=== PATIENT | female | born 1995 | race Caucasian/White ===

== ENCOUNTER 2018-12-06 18:50 | Inpatient (IN) ==
[2018-12-06 19:50] LABS: Basophils # (auto) 0.05 K/uL (0-0.2); Basophils % (auto) 0.4 %; Eosinophils # (auto) 0.15 K/uL (0-0.5); Eosinophils % (auto) 1.1 %; Hemoglobin 14.3 g/dL (12.0-16.0); Immature Granulocytes # (auto) 0.06 K/uL (0.00-0.02); Immature Granulocytes % (auto) 0.4 %; Lymphocytes # (auto) 3.01 K/uL (1.2-3.4); Lymphocytes % (auto) 21.7 %; Mean Corpuscular Hgb Conc 34.9 g/dL (32-36); Mean Corpuscular Volume 89.9 fL (80-100); Mean Platelet Volume 9.4 fL (7.4-10.4); Monocytes # (auto) 1.07 K/uL (0.11-0.59); Monocytes % (auto) 7.7 %; Neutrophils # (auto) 9.52 K/uL (1.4-6.5); Neutrophils % (auto) 68.7 %; Platelet Count 349 K/uL (130-400); RDW Coefficient of Variation 12.8 % (11.5-14.5); RDW Standard Deviation 41.6 fL (36.4-46.3); Red Blood Count 4.56 M/uL (4.2-5.4); White Blood Count 13.86 K/uL (4.8-10.8)
[2018-12-06 20:03] LABS: Appearance Urine Clear (Clear); Bacteria Urine Automated 1+ (Negative); Bilirubin Urine Negative (Negative); Blood Urine Negative (Negative); Color Urine Dark Yellow; Epithelial Cell Urine Auto >30 /lpf (0-5); Glucose Urine UA Negative (Negative); Ketones Urine Trace (Negative); Leukocyte Esterase Urine Negative (Negative); Nitrite Urine Negative (Negative); Protein Urine Trace (Negative); RBC Urine Automated 0-4 /hpf (0-4); Specific Gravity Urine 1.021 (1.000-1.030); Urobilinogen Urine Negative (Negative); pH Urine 6.5 (4.5-7.5)
[2018-12-06 20:05] LABS: Albumin Level 3.5 gm/dl (3.4-5.0); BUN Creatinine Ratio 7.4 (10-20); Calcium 9.3 mg/dl (8.5-10.1); Creatinine Clr Calc Pharmacy 99.8 ml/min; Est GFR (African American) 127.9; Est GFR (Non-African American) 110.4; Potassium 3.3 mmol/L (3.5-5.1)
[2018-12-06 20:09] LABS: Albumin Globulin Ratio 0.7 (0.9-2); Bilirubin,Total 0.5 mg/dl (0.2-1); Globulin 5.3 gm/dl (2.5-4.0); Total Protein 8.8 gm/dl (6.4-8.2)
[2018-12-06 20:52] LABS: Renal Epithelial Cells Urine 0-5 /lpf (0-5)
--- NOTE | 2018-12-06 21:37 | Ultrasound Report ---
US extremity non-vascular ltd HISTORY: 23 years-old Female R proximal thigh edema, localized acute pain and swelling of the right proximal thigh COMPARISON: None available TECHNIQUE: Multiple real-time sonographic images of the right thigh were obtained assessing grayscale appearance and color flow FINDINGS: Moderate subcutaneous edema is noted about the proximal right thigh. In the area of clinical concern there is a mildly enlarged lymph node measuring 2.3 x 1.1 x 1.7 cm which morphologically appears unre markable. Adjacent smaller lymph nodes are also present. No drainable fluid collection or other focal abnormality identified. IMPRESSION: 1. Subcutaneous edema about the proximal thigh with a single mildly enlarged lymph node, possibly cathleen ctive. 2. No drainable fluid collection. The above report was generated using voice recognition software. It may contain grammatical, syntax o r spelling errors. Electronically signed by: Rick Pepe M.D. 12/06/2018 9:35 PM
--- NOTE | 2018-12-06 22:49 | History & Physical Report ---
Date of Service December 06, 2018 Assessment & Plan (1) Cellulitis of thigh: 23 y/o F Hx psoriasis who takes Cosentyx. She developed an area of inflammation on her R thigh jackie the past 1-2 days which has become firm and painful. She denies fevers or rigors and did not suffer trauma to the area. Initial labs are notable for leukocytosis and mild hypokalemia. 1) Cellulitis - no abscess on imaging but there is subcutaneous fluid and risk of abscess development. She will be retained in the hospital overnight as she is technically immunocompromised due to Cosentyx and the affected area is approaching the groin fold. She is placed on Clinda and Vanc. The affected area has been delineated. Surgery has been consulted. 2) Hypokalemia - mild - received 20meq Klorcon, 20KLC in IVF, 1g Mag 3) Psoriasis - can hold Cosentyx until infection resolves. Full code - Ambulatory - start Heparin if exceeds a day in hospital and no debridement needed AM Total time for this admit including review of labs, meds, imaging - discussion with pt and ER attending - 35 min Present on Admission?: Yes History of Present Illness Chief Complaint: Cellulitis thigh Primary Care Provider: NO PCP 23 y/o F Hx psoriasis who takes Cosentyx. She developed an area of inflammation on her R thigh jackie the past 1-2 days which has become firm and painful. She denies fevers or rigors and did not suffer trauma to the area. Initial labs are notable for leukocytosis and mild hypokalemia. PMH: Limited to psoriasis. She was on Humira for one year and switched to Cosentyx as the Humira injection was painful. Surgical: Tonsillectomy age 17 Social: [employer] student. Denies smoking. Drink a little. Family: Parents alive and well. Past Med/Surg History Social History Preferred Language: Barbadian Feels Safe at Home: Yes Smoking Status: Never smoker Review of Systems Review of Systems: Gen: Denies fevers, night sweats, rigors, fatigue, malaise, weight loss/gain ENT: Denies congestion, throat pain, hearing loss Eyes: Denies acute visual changes CV: Denies CP, palpitations Pulmonary: Denies SOB, cough, wheezing GI: Denies N/V, diarrhea, constipation Neuro: Denies acute or unilateral weakness, acute gait impairment, headache or acute visual changes Musculoskeletal: Denies joint pain, inflammation Endocrine: Denies polydipsia, polyuria Skin: Acute inflammation on R thigh Physical Exam Physical Exam: General: AAO x 3, no distress ENT: No erythema or exudates, no thrush Eyes: TITO, EOMI Head and neck: Normocephalic, atraumatic, No JVD, neck is supple. Chest/heart: Nontender, S1,2, RRR, no murmurs, no gallops Lungs: CTAB, no wheezing or crackles Abdomen: Nontender, nondistended, BS+ Neuro: AAO x 3, speech is clear, no unilateral weakness or loss of sensation, coordination intact Musculoskeletal: No joint inflammation, muscle tenderness, FROM Skin: There is a large frim/erythematous area on the pt's R thigh which examines as an abscess. Extremities: No clubbing, cyanosis, edema Results & Data Vital Signs (Past 12 Hours) Vital Signs Temp Pulse Pulse Resp BP BP Pulse Ox 12/06/18 20:46 108 H 18 136/89 93 12/06/18 18:54 97.9 F 125 H 16 133/94 100
[2018-12-06] MEDS ORDERED: TRAMADOL HCL 50 MG TABLET PO PRN (23:38)
[2018-12-06] MEDS ORDERED: ALUMINUM/MAGNESIUM SUSP 30 ML UDC PO PRN (23:38)
[2018-12-06] MEDS ORDERED: ACETAMINOPHEN 325 MG TAB PO PRN (23:38)
[2018-12-06] MEDS ORDERED: POLYETHYLENE (MIRALAX) 17 GM PACK PO PRN (23:38)
[2018-12-06] MEDS ORDERED: VANCOMYCIN CONSULT ACTIVE PRN (23:38)
[2018-12-06] MEDS ORDERED: IBUPROFEN 200 MG TAB PO PRN (23:38)
[2018-12-06] MEDS ORDERED: ZOLPIDEM TARTRATE 5 MG TAB PO PRN (23:38)
[2018-12-06] MEDS ORDERED: ONDANSETRON INJ 2 MG/ML 2 ML VIAL IV PRN (23:38)
[2018-12-06] MEDS ORDERED: MAGNESIUM HYDROXIDE SUSP 30 ML UDC PO PRN (23:38)
[2018-12-06] MEDS ORDERED: PATIENT'S ALLERGY INFO NEEDS ENTERED SCH (23:45)
[2018-12-07] MEDS ORDERED: MAGNESIUM SULFATE / D5W 1 GM/100 ML BAG IV ONE (01:00)
[2018-12-07] MEDS ORDERED: D5NSS + 20MEQ KCL 20 MEQ/1,000 ML BAG IV SCH (01:00)
[2018-12-07] MEDS ORDERED: POTASSIUM CHLORIDE 20 MEQ TABCR PO STA (01:09)
--- NOTE | 2018-12-07 01:19 | Emergency Department Note ---
History of Present Illness General Chief complaint: Skin Problem Stated complaint: LUMP ON GROIN/RIGHT THIGH Time Seen by Provider: 12/06/18 18:58 History of Present Illness Maximum Pain Intensity: 8 This is a 23-year-old female that presents to the emergency department via private vehicle with complaints of "lump on groin/right thigh". The patient notes that beginning November 25 she felt a bump in the right proximal medial thigh. It progressively has worsened and become larger and now painful. She notes that she could barely walk because of the pain in this region. She notes that [facility] to coming here and was prescribed doxycycline. She notes that there is pain in the region of which she currently rates as an 8/10. She notes no trauma or injury. She states that on November 14 though however she did administer her scheduled psoriasis medication. She notes that this injection was administered inferior to the region that is now of concern. 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 Beliefs That Will Affect Care: None Current Living Situation: Other Current Living Situation Comment: roommates Feels Safe at Home: Yes Safety Concerns: Feels Safe At This Time Smoking Status: Never smoker Hx Alcohol Use: Yes Alcohol type: beer, wine and hard liquor Hx Substance Use: No Review of Systems A total of 10 systems reviewed and were otherwise negative Physical Exam Vital Signs Vital Signs - 24 hr 12/06/18 18:54 12/06/18 20:46 12/06/18 22:41 Temperature 36.6 C Temperature Source Oral Sepsis Recent Fever Within 48 Hours No Sepsis New/Unexplained Change in Mental Status No Sepsis Action Taken by Nursing No Action Required Pulse Rate 125 H Pulse Rate [Finger] 108 H 83 Pulse Rhythm [Finger] Pulse Strength [Finger] Respiratory Rate 16 18 18 Respiratory Effort / Characteristics Respiratory Depth Respiratory Pattern Blood Pressure 133/94 Blood Pressure [Right Arm] 136/89 124/77 Blood Pressure Mean 107 Blood Pressure Mean [Right Arm] 104 92 Blood Pressure Position [Right Arm] Pulse Oximetry 100 93 97 Oxygen Delivery Method Room Air Room Air Room Air 12/06/18 23:48 Temperature 37.1 C Temperature Source Oral Sepsis Recent Fever Within 48 Hours Sepsis New/Unexplained Change in Mental Status Sepsis Action Taken by Nursing Pulse Rate Pulse Rate [Finger] 103 H Pulse Rhythm [Finger] Regular Pulse Strength [Finger] Normal Respiratory Rate 16 Respiratory Effort / Characteristics Non-Labored Spontaneous Respiratory Depth Normal Respiratory Pattern Regular Blood Pressure Blood Pressure [Right Arm] 122/82 Blood Pressure Mean Blood Pressure Mean [Right Arm] 95 Blood Pressure Position [Right Arm] Lying Pulse Oximetry 99 Oxygen Delivery Method Room Air VITAL SIGNS - Vital signs and nursing notes were reviewed. Stable and afebrile. GENERAL -23-year-old female appearing her stated age who is in no acute dist ress. Communicates well with provider and answers questions appropriately. SKIN -on the patient's right proximal medial thigh there is a large edematous region that protrudes from the normal contour of the skin that is about 10 cm in width and about 5 cm in height. This raises off the skin about 3 cm. This is not fluctuant. This is tender and firm to the touch. HEAD - NC/AT. EYES - PERRL with EOMI bilaterally. Sclera anicteric. Palpebral conjunctiva pink and moist with no injection noted. EARS - No deformities of external structures noted on gross examination bilaterally. NOSE - Midline and without cyanosis. No epistaxis or purulent drainage noted. MOUTH/OROPHARYNX - Without perioral cyanosis. Buccal mucosa pink and moist and without leukoplakia. Tongue midline with equal elevation of palate bilaterally. NECK - Neck with FROM. Supple to palpation. No lymphadenopathy noted. No nuchal rigidity. LUNGS - Chest wall symmetric without accessory muscle use, intercostals retractions, or central cyanosis. Normal vesicular breath sounds CTA B/L. No wheezes, rales, or rhonchi appreciated. CARDIAC - RRR with S1/S2. No murmur, rubs, or gallops appreciated. EXTREMITIES - No clubbing or peripheral cyanosis. No pretibial edema present. +5/5 strength noted in UE/LE bilaterally. Skin changes as above. No bony tenderness. No lymphogenic streaking. No fluctuance. NEUROLOGIC - Cranial nerves II through XII grossly intact. Sensory intact to light touch throughout. PSYCH - A&Ox3 and cooperates fully with examiner. Pt is very pleasant and interacts well with examiner. Course Administered Medications Clindamycin Phosphate 600 mg/ (Dextrose) 54 mls @ 100 mls/hr IV Q8H JACKI Stop: 12/17/18 00:59 Last Admin: 12/07/18 01:23 Dose: 100 mls/hr Documented by: [id number] Potassium Chloride/Dextrose/Sod Cl (D5nss + 20meq Kcl) 20 meq in 1,000 mls @ 100 mls/hr IV .Q10H JACKI Stop: 12/07/18 10:59 Last Admin: 12/07/18 01:22 Dose: 100 mls/hr Documented by: [id number] Medical Decision Making Laboratory Data Result diagrams: 12/06/18 19:29 12/06/18 19:29 Lab Results 12/06/18 12/06/18 12/06/18 Range/Units 19:29 19:29 19:29 WBC 13.86 H (4.8-10.8) K/uL RBC 4.56 (4.2-5.4) M/uL Hgb 14.3 (12.0-16.0) g/dL Hct 41.0 (37-47) % MCV 89.9 (80-100) fL MCH 31.4 (25-34) pg MCHC 34.9 (32-36) g/dL RDW Std Deviation 41.6 (36.4-46.3) fL RDW Coeff of Denny 12.8 (11.5-14.5) % Plt Count 349 (130-400) K/uL MPV 9.4 (7.4-10.4) fL Immature Gran % (Auto) 0.4 % Neut % (Auto) 68.7 % Lymph % (Auto) 21.7 % Douglas % (Auto) 7.7 % Eos % (Auto) 1.1 % Baso % (Auto) 0.4 % Immature Gran # (Auto) 0.06 H (0.00-0.02) K/uL Neut # (Auto) 9.52 H (1.4-6.5) K/uL Lymph # (Auto) 3.01 (1.2-3.4) K/uL Douglas # (Auto) 1.07 H (0.11-0.59) K/uL Eos # (Auto) 0.15 (0-0.5) K/uL Baso # (Auto) 0.05 (0-0.2) K/uL Sodium 142 (136-145) mmol/L Potassium 3.3 L (3.5-5.1) mmol/L Chloride 104 (98-107) mmol/L Carbon Dioxide 29 (21-32) mmol/L Anion Gap 9.0 (3-11) BUN 6 L (7-18) mg/dl Creatinine 0.77 (0.6-1.2) mg/dl Est Cr Clr Drug Dosing 99.8 ml/min Est GFR ( Amer) 127.9 Est GFR (Non-Af Amer) 110.4 BUN/Creatinine Ratio 7.4 L (10-20) Glucose 102 H (70-99) mg/dl Calcium 9.3 (8.5-10.1) mg/dl Total Bilirubin 0.5 (0.2-1) mg/dl AST 16 (15-37) U/L ALT 20 (12-78) U/L Alkaline Phosphatase 179 H (45-117) U/L Total Protein 8.8 H (6.4-8.2) gm/dl Albumin 3.5 (3.4-5.0) gm/dl Globulin 5.3 H (2.5-4.0) gm/dl Albumin/Globulin Ratio 0.7 L (0.9-2) Urine Color Dark Yellow Urine Appearance Clear (Clear) Urine pH 6.5 (4.5-7.5) Ur Specific [place] 1.021 (1.000-1.030) Urine Protein Trace H (Negative) Urine Glucose (UA) Negative (Negative) Urine Ketones Trace H (Negative) Urine Blood Negative (Negative) Urine Nitrite Negative (Negative) Urine Bilirubin Negative (Negative) Urine Urobilinogen Negative (Negative) Ur Leukocyte Esterase Negative (Negative) Urine WBC (Auto) 5-10 H (0-5) /hpf Urine RBC (Auto) 0-4 (0-4) /hpf U Hyaline Cast (Auto) 10-30 H (0-5) /lpf U Epithel Cells (Auto) >30 H (0-5) /lpf Urine Bacteria (Auto) 1+ H (Negative) Ur Renal Epithelial Cell 0-5 (0-5) /lpf POC Ur Test (NEG) 12/06/18 Range/Units 19:29 WBC (4.8-10.8) K/uL RBC (4.2-5.4) M/uL Hgb (12.0-16.0) g/dL Hct (37-47) % MCV (80-100) fL MCH (25-34) pg MCHC (32-36) g/dL RDW Std Deviation (36.4-46.3) fL RDW Coeff of Denny (11.5-14.5) % Plt Count (130-400) K/uL MPV (7.4-10.4) fL Immature Gran % (Auto) % Neut % (Auto) % Lymph % (Auto) % Douglas % (Auto) % Eos % (Auto) % Baso % (Auto) % Immature Gran # (Auto) (0.00-0.02) K/uL Neut # (Auto) (1.4-6.5) K/uL Lymph # (Auto) (1.2-3.4) K/uL Douglas # (Auto) (0.11-0.59) K/uL Eos # (Auto) (0-0.5) K/uL Baso # (Auto) (0-0.2) K/uL Sodium (136-145) mmol/L Potassium (3.5-5.1) mmol/L Chloride (98-107) mmol/L Carbon Dioxide (21-32) mmol/L Anion Gap (3-11) BUN (7-18) mg/dl Creatinine (0.6-1.2) mg/dl Est Cr Clr Drug Dosing ml/min Est GFR ( Amer) Est GFR (Non-Af Amer) BUN/Creatinine Ratio (10-20) Glucose (70-99) mg/dl Calcium (8.5-10.1) mg/dl Total Bilirubin (0.2-1) mg/dl AST (15-37) U/L ALT (12-78) U/L Alkaline Phosphatase (45-117) U/L Total Protein (6.4-8.2) gm/dl Albumin (3.4-5.0) gm/dl Globulin (2.5-4.0) gm/dl Albumin/Globulin Ratio (0.9-2) Urine Color Urine Appearance (Clear) Urine pH (4.5-7.5) Ur Specific [place] (1.000-1.030) Urine Protein (Negative) Urine Glucose (UA) (Negative) Urine Ketones (Negative) Urine Blood (Negative) Urine Nitrite (Negative) Urine Bilirubin (Negative) Urine Urobilinogen (Negative) Ur Leukocyte Esterase (Negative) Urine WBC (Auto) (0-5) /hpf Urine RBC (Auto) (0-4) /hpf U Hyaline Cast (Auto) (0-5) /lpf U Epithel Cells (Auto) (0-5) /lpf Urine Bacteria (Auto) (Negative) Ur Renal Epithelial Cell (0-5) /lpf POC Ur Test NEG (NEG) Imaging Data Radiologist's Impression: US extremity non-vascular ltd HISTORY: 23 years-old Female R proximal thigh edema, localized acute pain and swelling of the right proximal thigh COMPARISON: None available TECHNIQUE: Multiple real-time sonographic images of the right thigh were obtained assessing grayscale appearance and color flow FINDINGS: Moderate subcutaneous edema is noted about the proximal right thigh. In the area of clinical concern there is a mildly enlarged lymph node measuring 2.3 x 1.1 x 1.7 cm which morphologically appears unremarkable. Adjacent smaller lymph nodes are also present. No drainable fluid collection or other focal abnormality identified. IMPRESSION: 1. Subcutaneous edema about the proximal thigh with a single mildly enlarged lymph node, possibly reactive. 2. No drainable fluid collection. The above report was generated using voice recognition software. It may contain grammatical, syntax or spelling errors. Electronically signed by: Rick Pepe M.D. 12/06/2018 9:35 PM [facility] Narrative Patient was seen and evaluated as above in room D3b. Review was performed of nursing notes and vital signs. After obtaining a thorough history and physical examination the above work up was performed. She presents to us today with what appears to be an infectious process in the right proximal thigh concerning for possible abscess versus induration. IV access was established. Labs were drawn. Ultrasound was obtained. Results as above. No drainable fluid collection. Subcutaneous edema noted. There is concern for cellulitis. I discussed these findings with the attending physician who also evaluated the area of concern and I also subsequently discussed this with the on-call general surgeon, Dr. Gann. We discussed different options of care. It was decided upon to have the patient admitted to the hospital under the medical service for IV antibiotics. A repeat ultrasound could then be performed if clinically necessary to evaluate for any developing abscess. There team could also be consulted. Patient was offered admission versus discharge and through shared decision-making elected to stay in the hospital. I believe this is reasonable given the amount of edema and infection. I am also concerned because I believe the patient is taking a medication for the psoriasis which is called Cosentyx and is immunosuppressant. The concern is that given her possible immunosuppres sed state that she may not do well in the outpatient setting initially as this is a pretty impressive infection. It is felt that it is in the best interest of the patient to be admitted for further evaluation and management. I also discussed these findings with her father per patient request. Everyone was happy with plan of care and in agreement. I discussed these findings with the hospitalist who came to evaluate the patient. Please refer to further documentation regarding her stay. They have ordered the antibiotics. In review of her labs: CBC reveals leukocytosis of 13.86 without anemia. Mild hypokalemia. Urinalysis does not reveal a UTI, rather believe there is a contaminated specimen. UPT negative. Case was discussed with the attending physician. In the evaluation and treatment of this patient the following differential diagnoses were entertained: Cellulitis, abscess, induration, lymph node enlargement, among others. Impression & Plan Cellulitis of thigh Discharge Plan Visit Data *Final* Discharge Date/Time: 12/06/18 23:11 Chief Complaint: Skin Problem Stated Complaint: LUMP ON GROIN/RIGHT THIGH ED Provider: Phi Adame ED Midlevel Provider: Nitin Bravo Discharge Problem: Cellulitis of thigh Patient Disposition: Admitted As Inpatient Condition: Good Discharge Instructions Interventions: ED Discharge Assessment Last Done: 12/06/18 23:11
[2018-12-07] MEDS: CLINDAMYCIN 600 MG in DEXTROSE 5% 50 ML IV SCH ×3 (01:23→16:53)
[2018-12-07] MEDS ORDERED: VANCOMYCIN HCL 1,500 MG in SODIUM CHLORIDE 0.9% 500 ML IV SCH (02:00)
[2018-12-07] MEDS ORDERED: POTASSIUM CHLORIDE 20 MEQ TABCR PO ONE (07:26)
--- NOTE | 2018-12-07 07:33 | Surgery Consultation ---
Date of Consultation December 07, 2018 Assessment & Plan (1) Cellulitis of thigh: Patient admitted with cellulitis of the right upper thigh. It appears the cellulitis has resolved well overnight but she continues to have some induration. I do not think we need to attempt drainage at this point continue IV antibiotics for now and then switch to p.o. antibiotic. We will ask infectious disease to see the patient for antibiotic choices. Depending on her Progress she may need incision and drainage under sedation. If she does well we may consider discharge in the next 1 to 2 days with outpatient follow-up. History of Present Illness Attending Physician: Donnie La MD History of Present Illness 23-year-old female admittedThrough the emergency room with complaint of right thigh tenderness this. She apparently has cellulitis in the area. She underwent ultrasound showing a lymph node approximately 2.5 cm with no specific fluid collection. She does have a history of psoriasis and uses Cosentyx which she apparently injects herself. This is not an injection site. 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 Beliefs That Will Affect Care: None Current Living Situation: Other Current Living Situation Comment: roommates Feels Safe at Home: Yes Safety Concerns: Feels Safe At This Time Smoking Status: Never smoker Hx Alcohol Use: Yes Alcohol type: beer, wine and hard liquor Hx Substance Use: No Review of Systems Review of Systems: All systems reviewed & are unremarkable except as noted in HPI & below Physical Exam Physical Exam: She is awake and alert she is in no distress her head is atraumatic sclera anicteric neck is supple showed no evidence of respiratory distress heart regular rate skin shows almost complete resolution of the celluli tis in the right upper thigh. She does have some induration mild tenderness. It does not appear to be fluctuant. Extremities are warm and dry. Results & Data Vital Signs (Past 12 Hours) Vital Signs Temp Pulse Resp BP Pulse Ox 12/06/18 23:48 37.1 C 103 H 16 122/82 99 12/06/18 22:41 83 18 124/77 97 12/06/18 20:46 108 H 18 136/89 93
--- NOTE | 2018-12-07 09:21 | Pharmacy Report ---
Pharmacy Abx Initial Consult - Date of Service December 07, 2018 - Pharmacy Dosing Scope Date of Consult: 12/07/18 Consultation requested by: Dr. La Pharmacy is consulted to initiate Vancomycin IV dosing therapy, order appropriate labs and adjust drug dose/frequency. - Objective Height: 5 ft 4 in Weight: 64.2 kg Vital Signs (Past 12hrs): Vital Signs Temp Pulse Resp BP Pulse Ox 12/07/18 07:54 36.6 C 71 16 114/77 98 12/06/18 23:48 37.1 C 103 H 16 122/82 99 12/06/18 22:41 83 18 124/77 97 Lab Results (24hrs): Laboratory Tests (24 Hours) 12/06/18 12/06/18 19:29 19:29 WBC 13.86 H Neut # (Auto) 9.52 H Creatinine 0.77 Est Cr Clr Drug Dosing 99.8 Micro Results: 12/06/18 19:29 Urine Culture - Pending Urine,Clean Catch - Risk Factors for Resistance * Immunocompromised; pt takes secukinumab (Cosentyx) for psoriasis - Assessment & Plan Assessment 23 year old F admitted with cellulitis of the right upper thigh. * Patient ordered empiric vancomycin and clindamycin IV * No drainable fluid collection per ultrasound, however provider notes indicate that there is subcutaneous fluid present and therefore risk of developing abscess. * Per surgery evaluation; cellulitis has resolved well overnight but she continues to have some induration. Plan to hold off on I&D for now and consult ID service for antibiotic selection. Plan Vancomycin IV * Estimated PK Parameters: Pablo 0.087 hr-1, t1/2 8 hr * Loading dose: 1500 mg (23.4 mg/kg) * Maintenance dose: 1000 mg IV (~16 mg/kg) every 8 hours * Goal trough level for cellulitis : ~15 mcg/mL * Trough level ordered for 12/08 prior to 1200 dose Pharmacy will continue to follow and will adjust dose/frequency as necessary. Thank you.
--- NOTE | 2018-12-07 10:49 | Infectious Disease Consult ---
Date of Consultation December 07, 2018 Assessment & Plan (1) Cellulitis of thigh: ? early abscess, nothing noted on ultrasound, will continue with abx for now and follow clinical response. If increased swelling, may need ct scan vs I&D. no evidence of cellulitis on exam today, pt states improved. History of Present Illness Attending Physician: Phi Garvin DO pt admitted with rle cellulitis, ? early abscess. has psoriasis, self injects treatment into leg, but not in the area where she developed pain and swelling. right upper thigh/groin area became painful and swollen, came to ER, diagnosed with cellulitis and placed on IV clinda, tolerating well. 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 surgery eval obtained, ultrasound done, min enlarged lymph node no collection seen. No plans for OR at this time. She states it is feeling better today, able to walk but has some sharp pain in upper thigh afterward, denies any scrapes, wounds in the area. wbc 13.8. 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 Beliefs That Will Affect Care: None Current Living Situation: Other Current Living Situation Comment: roommates Feels Safe at Home: Yes Safety Concerns: Feels Safe At This Time Smoking Status: Never smoker Hx Alcohol Use: Yes Alcohol type: beer, wine and hard liquor Hx Substance Use: No Review of Systems Review of Systems: All systems reviewed & are unremarkable except as noted in HPI & below Physical Exam Constitutional: WD/WN, vitals as above Eyes: PERRL, conjunctivae normal, anicteric sclerae ENMT: external ear and nose normal, oropharynx normal Neck: normal visual inspection Respiratory: normal respiratory effort, lungs clear to auscultation Cardiovascular: RRR, no murmur, no edema Gastrointestinal (Abdomen): normal bowel sounds, soft, nontender, no hepatosplenomegaly Musculoskeletal: no cyanosis or clubbing, extremities motor strength 5/5 Skin: no rashes, warm and dry right thigh with significant swelling, no e rythema, no warmth, tender to light palpation in area of swelling. no induration, no open area. [place] drawn on leg, states erythema much improved. Psychiatric: A+Ox3, euthymic affect Results & Data Vital Signs (Past 12 Hours) Vital Signs Temp Pulse Resp BP Pulse Ox 12/07/18 07:54 36.6 C 71 16 114/77 98 12/06/18 23:48 37.1 C 103 H 16 122/82 99
[2018-12-07] MEDS: VANCOMYCIN HCL 1,000 MG in SODIUM CHLORIDE 0.9% 250 ML IV SCH ×2 (12:55→20:34)
--- NOTE | 2018-12-07 13:27 | Family Medicine Progress Note ---
Date of Service December 07, 2018 Assessment & Plan (1) Lymphadenopathy, inguinal: 23 y/o F PMHx psoriasis who takes Cosentyx. She developed an area of inflammation on her R thigh over the past 2 weeks which acutely worsened over the past 1 to 2 days becoming increasingly large and slightly painful. She denies fevers or rigors and did not suffer trauma to the area. Initial labs are notable for leukocytosis and mild hypokalemia. No recent cuts or trauma to the leg #) inguinal lymphadenopathy On presentation leg had visible swelling in the upper right thigh on palpation was thought to be a lymph node with corresponding erythema. Erythematous region was marked with a marker on admission and ultrasound was obtained. Ultrasound was negative for abscess but demonstrates some subcutaneous fluid and risk of abscess development. She was placed on vancomycin and clindamycin and admitted for inpatient monitoring overnight. This morning her cellulitis is resolved no more erythematous in the region and swelling is within the previously marked site. Given social history of recent unprotected sexual intercourse could consider STI work-up for syphilis or lymphogranuloma venereum. -General surgery was consulted following the recommendations. -Currently no indication for drainage -Consult I&D for antibiotic recommendations continue IV antibiotics transition to p.o. -Depending on clinical course she may be need to be taken to the operating room for sedation with incision and drainage -Infectious disease consulted following recommendations -Questionable early abscess -New IV antibiotics for now and follow clinical response -If swelling increases consider CT scan versus I&D -Negative for cellulitis on exam -Daily CBC to trend infection #)UTI Patient reports recent history of urinary tract symptoms last weekend, she treated herself with xtcv-myn-fmyzkyh medication, leading to resolution of symptoms. UA from yesterday evening was suspicious for urinary tract infection. 5-10 WBCs, urine bacteria 1+, hyaline cast present, epithelial cells as well. -UTI versus contaminants while obtaining sample, clinically patient denies signs or symptoms of UTI -Follow-up culture results #) Hypokalemia -Have been repleting as indicated, received 2 doses 20 M EQ KCl in the emergency room and 1 dose this morning -Follow daily BMP, replete electrolytes as indicated #) Psoriasis -Hold Cosentyx until infection is resolved FENa: Regular diet Code Status: Full code DVT PPX: Ambulation consider Lovenox depending on length of admission Dispo: MedSurg (2) Cellulitis of thigh: 23 y/o F Hx psoriasis who takes Cosentyx. She developed an area of inflammation on her R thigh jackie the past 1-2 days which has become firm and painful. She denies fevers or rigors and did not suffer trauma to the area. Initial labs are notable for leukocytosis and mild hypokalemia. 1) Cellulitis - no abscess on imaging but there is subcutaneous fluid and risk of abscess development. She will be retained in the hospital overnight as she is technically immunocompromised due to Cosentyx and the affected area is approaching the groin fold. She is placed on Clinda and Vanc. The affected area has been delineated. Surgery has been consulted. 2) Hypokalemia - mild - received 20meq Klorcon, 20KLC in IVF, 1g Mag 3) Psoriasis - can hold Cosentyx until infection resolves. Full code - Ambulatory - start Heparin if exceeds a day in hospital and no debridement needed AM Total time for this admit including review of labs, meds, imaging - discussion with pt and ER attending - 35 min Supervising Physician Co-Signing Physician Notes I personally examined the patient and verified all cerrato points of history and exam, discussed case, and agree with decision making with Dr Puentes. feeling better still hurting but far less. less red than before as well vitals noted nad breathing unlabored no pallor or icterus. R leg medial thigh large ~8.10cm x 3-4cm oblong area of thickening, tenderness. no erythema no fluctuance. pt notes better than before. small nonspecific mobile inguinal adenopathy cellulitis, concern on possible developing abscess - nothing appearing drainable right now. continue current antibiotics and supportive care. serial exams, repeat imaging if needed. Subjective Patient laying in bed this morning in no acute distress. Patient noticed a little lymph node in her leg began to swell around November 22, this past week it did become more bothersome and increased in size. Patient presented to the ED for further evaluation, placed on antibiotics Vanco and clindamycin improving subjectively. Patient reports minimal pain, tolerating her diet, sleeping, voiding, stooling appropriately. Upon obtaining further history the patient does report a recent history of unprotected sex. Negative for PID symptoms.of note patient endorses a recent history of urinary tract infection taking some iyey-ifh-gapeaab medication for it reports subjective improvement. Her urinalysis from admission and last night was suspicious for urinary tract infection cultures pending. Patient denies fevers, chills, nausea, vomiting, shortness of breath, chest pain, abdominal pain, other signs and symptoms of acute infectious process. Physical Exam Physical Exam: General: Young female in no acute distress, normocephalic atraumatic Eyes: EOMI/PERRLA Neck: Trachea midline, normal to visual inspection, negative JVD Chest: Clear to auscultation bilaterally Cardiac: Regular rate and rhythm, no murmurs rubs or gallops, normal S1-S2 GI: Normal bowel sounds, soft, nondistended, nontender to palpation MSK: Moves all extremities without pain Skin: Warm dry and intact, right leg has predominant swelling presumed lymph node, nontender nonpainful. Signs of cellulitis no longer present, marker outlined previous site of erythema Neuro: Alert and oriented x4, sensorimotor functions intact Psych: Calm, cooperative, logical thought process Results & Data Vital Signs (Past 12 Hours) Vital Signs Temp Pulse Resp BP Pulse Ox 12/07/18 07:54 36.6 C 71 16 114/77 98 Laboratory Results 12/06/18 19:29 12/06/18 19:29 12/06/18 12/06/18 12/06/18 Range/Units 19:29 19:29 19:29 WBC (4.8-10.8) K/uL RBC (4.2-5.4) M/uL Hgb (12.0-16.0) g/dL Hct (37-47) % MCV (80-100) fL MCH (25-34) pg MCHC (32-36) g/dL RDW Std Deviation (36.4-46.3) fL RDW Coeff of Denny (11.5-14.5) % Plt Count (130-400) K/uL MPV (7.4-10.4) fL Immature Gran % (Auto) % Neut % (Auto) % Lymph % (Auto) % Mitchell % (Auto) % Eos % (Auto) % Baso % (Auto) % Immature Gran # (Auto) (0.00-0.02) K/uL Neut # (Auto) (1.4-6.5) K/uL Lymph # (Auto) (1.2-3.4) K/uL Mitchell # (Auto) (0.11-0.59) K/uL Eos # (Auto) (0-0.5) K/uL Baso # (Auto) (0-0.2) K/uL Sodium 142 (136-145) mmol/L Potassium 3.3 L (3.5-5.1) mmol/L Chloride 104 (98-107) mmol/L Carbon Dioxide 29 (21-32) mmol/L Anion Gap 9.0 (3-11) BUN 6 L (7-18) mg/dl Creatinine 0.77 (0.6-1.2) mg/dl Est Cr Clr Drug Dosing 99.8 ml/min Est GFR ( Amer) 127.9 Est GFR (Non-Af Amer) 110.4 BUN/Creatinine Ratio 7.4 L (10-20) Glucose 102 H (70-99) mg/dl Calcium 9.3 (8.5-10.1) mg/dl Total Bilirubin 0.5 (0.2-1) mg/dl AST 16 (15-37) U/L ALT 20 (12-78) U/L Alkaline Phosphatase 179 H (45-117) U/L Total Protein 8.8 H (6.4-8.2) gm/dl Albumin 3.5 (3.4-5.0) gm/dl Globulin 5.3 H (2.5-4.0) gm/dl Albumin/Globulin Ratio 0.7 L (0.9-2) Urine Color Dark Yellow Urine Appearance Clear (Clear) Urine pH 6.5 (4.5-7.5) Ur Specific [place] 1.021 (1.000-1.030) Urine Protein Trace H (Negative) Urine Glucose (UA) Negative (Negative) Urine Ketones Trace H (Negative) Urine Blood Negative (Negative) Urine Nitrite Negative (Negative) Urine Bilirubin Negative (Negative) Urine Urobilinogen Negative (Negative) Ur Leukocyte Esterase Negative (Negative) Urine WBC (Auto) 5-10 H (0-5) /hpf Urine RBC (Auto) 0-4 (0-4) /hpf U Hyaline Cast (Auto) 10-30 H (0-5) /lpf U Epithel Cells (Auto) >30 H (0-5) /lpf Urine Bacteria (Auto) 1+ H (Negative) Ur Renal Epithelial Cell 0-5 (0-5) /lpf POC Ur Test NEG (NEG) 12/06/18 Range/Units 19:29 WBC 13.86 H (4.8-10.8) K/uL RBC 4.56 (4.2-5.4) M/uL Hgb 14.3 (12.0-16.0) g/dL Hct 41.0 (37-47) % MCV 89.9 (80-100) fL MCH 31.4 (25-34) pg MCHC 34.9 (32-36) g/dL RDW Std Deviation 41.6 (36.4-46.3) fL RDW Coeff of Denny 12.8 (11.5-14.5) % Plt Count 349 (130-400) K/uL MPV 9.4 (7.4-10.4) fL Immature Gran % (Auto) 0.4 % Neut % (Auto) 68.7 % Lymph % (Auto) 21.7 % Mitchell % (Auto) 7.7 % Eos % (Auto) 1.1 % Baso % (Auto) 0.4 % Immature Gran # (Auto) 0.06 H (0.00-0.02) K/uL Neut # (Auto) 9.52 H (1.4-6.5) K/uL Lymph # (Auto) 3.01 (1.2-3.4) K/uL Mitchell # (Auto) 1.07 H (0.11-0.59) K/uL Eos # (Auto) 0.15 (0-0.5) K/uL Baso # (Auto) 0.05 (0-0.2) K/uL Sodium (136-145) mmol/L Potassium (3.5-5.1) mmol/L Chloride (98-107) mmol/L Carbon Dioxide (21-32) mmol/L Anion Gap (3-11) BUN (7-18) mg/dl Creatinine (0.6-1.2) mg/dl Est Cr Clr Drug Dosing ml/min Est GFR ( Amer) Est GFR (Non-Af Amer) BUN/Creatinine Ratio (10-20) Glucose (70-99) mg/dl Calcium (8.5-10.1) mg/dl Total Bilirubin (0.2-1) mg/dl AST (15-37) U/L ALT (12-78) U/L Alkaline Phosphatase (45-117) U/L Total Protein (6.4-8.2) gm/dl Albumin (3.4-5.0) gm/dl Globulin (2.5-4.0) gm/dl Albumin/Globulin Ratio (0.9-2) Urine Color Urine Appearance (Clear) Urine pH (4.5-7.5) Ur Specific [place] (1.000-1.030) Urine Protein (Negative) Urine Glucose (UA) (Negative) Urine Ketones (Negative) Urine Blood (Negative) Urine Nitrite (Negative) Urine Bilirubin (Negative) Urine Urobilinogen (Negative) Ur Leukocyte Esterase (Negative) Urine WBC (Auto) (0-5) /hpf Urine RBC (Auto) (0-4) /hpf U Hyaline Cast (Auto) (0-5) /lpf U Epithel Cells (Auto) (0-5) /lpf Urine Bacteria (Auto) (Negative) Ur Renal Epithelial Cell (0-5) /lpf POC Ur Test (NEG) Medications Administered Current Inpatient Medications Acetaminophen (Tylenol) 650 mg PO Q4H PRN PRN Reason: pain/fever Stop: 01/05/19 23:37 Al Hydrox/Mg Hydrox/Simethicone (Maalox) 30 ml PO Q6H PRN PRN Reason: Dyspepsia Stop: 01/05/19 23:37 Clindamycin Phosphate 600 mg/ (Dextrose) 54 mls @ 100 mls/hr IV Q8H ON LICENSE OF [facility] Stop: 12/17/18 00:59 Last Infusion: 12/07/18 10:07 Dose: Infused Documented by: Vancomycin HCl 1,000 mg/ (Sodium Chloride) 270 mls @ 125 mls/hr IV Q8H ON LICENSE OF [facility] Stop: 12/17/18 11:59 Last Admin: 12/07/18 12:55 Dose: 125 mls/hr Documented by: Ibuprofen (Advil) 400 mg PO QID PRN PRN Reason: Moderate Pain Stop: 01/05/19 23:37 Last Admin: 12/07/18 02:37 Dose: 400 mg Documented by: Magnesium Hydroxide (Milk Of Magnesia) 30 ml PO Q6H PRN PRN Reason: Constipation Stop: 01/05/19 23:37 Miscellaneous Information (Consult) 1 ea N/A UD PRN PRN Reason: Consult Stop: 01/05/19 23:37 Ondansetron HCl (Zofran) 4 mg IV Q6H PRN PRN Reason: Nausea Stop: 01/05/19 23:37 Polyethylene Glycol (Miralax Powder Packet) 17 gm PO DAILY PRN PRN Reason: Constipation Stop: 01/05/19 23:37 Tramadol HCl (Ultram) 50 mg PO Q4H PRN PRN Reason: Pain Stop: 01/05/19 23:37 Zolpidem Tartrate (Ambien) 5 mg PO HS PRN PRN Reason: Sleep Stop: 01/05/19 23:37 Resident Activity Tracking Resident Involvement: Resident Care Provided Care Provided: Adult Hospital Medicine
--- OUTSIDE RECORDS SUMMARY | 2018-12-07 22:45 | External Medical Summary | Continuity of Care Document ---
:1995 Author Name Seth Aguilar Address Unavailable Unavailable , Care Team Providers Name Role Phone Trotter DO Unavailable [email or web address], NO Unavailable Unavailable Problems Active medical history not documented Allergies and Adverse Reactions Allergy history not documented Medications Medications not documented Procedures Procedures not documented Immunizations Immunizations not documented Plan of Treatment Planned Observations Planned Goals not documented Results No Known Results Results not documented
[2018-12-08] MEDS: CLINDAMYCIN 600 MG in DEXTROSE 5% 50 ML IV SCH ×3 (02:09→16:47)
[2018-12-08] MEDS: VANCOMYCIN HCL 1,000 MG in SODIUM CHLORIDE 0.9% 250 ML IV SCH ×3 (05:01→20:07)
[2018-12-08 07:18] LABS: Creatinine Clr Calc Pharmacy 142.3 ml/min; Est GFR (African American) > 150.0; Est GFR (Non-African American) 134.9
--- NOTE | 2018-12-08 08:03 | Progress Note ---
Date of Service December 08, 2018 Assessment & Plan (1) Lymphadenopathy, inguinal: I think we need to explore for abscess- in OR initial needle aspiration, possible incision, culture drainage, bx if necessary- suspect deep abscess ?necrotic lymph node- hopefully can isolate organism for atbx coverage Subjective very sore- she is concerned Physical Exam Physical Exam: no cellulitis but indurated and mass- very tender Results & Data Vital Signs (Past 12 Hours) Vital Signs Temp Pulse Resp BP Pulse Ox 12/08/18 07:35 36.6 C 85 16 108/70 97 12/07/18 23:19 37.2 C 86 16 119/78 97
--- NOTE | 2018-12-08 08:26 | Family Medicine Progress Note ---
Date of Service December 08, 2018 Assessment & Plan (1) Lymphadenopathy, inguinal: 23 y/o F PMHx psoriasis who takes Cosentyx. She developed an area of inflammation on her R thigh over the past 2 weeks which acutely worsened over the past 1 to 2 days becoming increasingly large and slightly painful. She denies fevers or rigors and did not suffer trauma to the area. Initial labs are notable for leukocytosis and mild hypokalemia. No recent cuts or trauma to the leg #) POD day 0 from I&D under general anesthesia of right mid thigh lymphadenopathy On presentation leg had visible swelling in the upper right thigh on palpation was thought to be a lymph node with corresponding erythema. Erythematous region was marked with a marker on admission and ultrasound was obtained. Ultrasound was negative for abscess but demonstrates some subcutaneous fluid and risk of abscess development. She was placed on vancomycin and clindamycin and admitted for inpatient monitoring overnight. This morning her cellulitis is resolved no more erythematous in the region and swelling is within the previously marked site. Patient went for I&D today under general anesthesia, tolerated the procedure well, meeting all postoperative milestones. -General surgery was consulted following the recommendations. -Patient will need surgery for initial needle aspiration, possible incision, culture, and drainage, biopsy if necessary. -Concerning for deep abscess versus necrotic lymph node -Consult I&D for antibiotic recommendations continue IV antibiotics transition to p.o. -Infectious disease consulted following recommendations -Transition to p.o. pending resolution of cultures obtained during I&D -Daily CBC to trend infection -Routine postop care -Pain control per general surgery with hydrocodone/acetaminophen, will DC prn acetaminophen to decrease risk of acetaminophen toxicity -Leukocytosis resolving 10.94 today from 13.86 #)Hx or recent UTI Patient reports recent history of urinary tract symptoms last weekend, she treated herself with [id number] medication, leading to resolution of symptoms. UA from yesterday evening was suspicious for urinary tract infection. 5-10 WBCs, urine bacteria 1+, hyaline cast present, epithelial cells as well. -Cultures negative for UTI #) Hypokalemia -Potassium 4.1 today no need to replete -received 2 doses 20 M EQ KCl in the emergency room and 1 dose 12/07 -Follow daily BMP, replete electrolytes as indicated #) Psoriasis -Hold Cosentyx until infection is resolved -Her next dose was supposed to be tomorrow will delay and resume next week FENa: Regular diet Code Status: Full code DVT PPX: Lovenox Dispo: MedSurg Supervising Physician Co-Signing Physician Notes I personally examined the patient and verified all cerrato points of history and exam, discussed case, and agree with decision making with Dr Puentes. Seen postop, pain actually surprisingly well controlled. No other complaints. vitals noted nad breathing unlabored no pallor or icterus. No rashes no pallor or icterus. cellulitis, developed abscessnow status post drainage. Continue current antibiotics pending cultures. Home hopefully soon. Subjective Patient laying down resting comfortably in bed in no acute distress POD 0 status post I&D of right mid thigh lymphadenopathy. Patient reports significant improvement in pain, pain is well controlled with acetaminophen. Obtained a further history of recent lower extremity injury. While in [facility] for spring break in early October she got a "funky blister" that did not heal. The blister did not start to resolve until early november. Also notes around the time that the lymphadenopathy developed her psoriasis got subjectively worse. Patient is tolerating her diet, voiding, stooling, sleeping well. Answered all questions no acute concerns at present. Patient denies fevers chills nausea vomiting constipation diarrhea abdominal pain shortness of breath chest pain chest pressure muscle aches or pain or other signs or symptoms of acute infection aside from described above Physical Exam Physical Exam: General: Young female in no acute distress Eyes: EOMI/PERRLA Neck: Trachea midline normal to visual inspection Chest: CTABL Cardiac: Regular rate and rhythm, normal S1 normal S2, no murmurs rubs or gallops GI: Normal bowel sounds, nontender, nondistended MSK: Moves all extrema Skin: Surgical site clean dry and intact, negative erythema, negative for pain Neuro: AAO x4 Psych: Calm cooperative logical thought process Results & Data Vital Signs (Past 12 Hours) Vital Signs Temp Pulse Resp BP Pulse Ox 12/08/18 07:35 36.6 C 85 16 108/70 97 12/07/18 23:19 37.2 C 86 16 119/78 97 Laboratory Results 12/08/18 12/08/18 12/08/18 Range/Units 11:48 06:02 06:02 WBC 10.94 H (4.8-10.8) K/uL RBC 4.14 L (4.2-5.4) M/uL Hgb 12.6 (12.0-16.0) g/dL Hct 37.0 (37-47) % MCV 89.4 (80-100) fL MCH 30.4 (25-34) pg MCHC 34.1 (32-36) g/dL RDW Std Deviation 40.4 (36.4-46.3) fL RDW Coeff of Denny 12.6 (11.5-14.5) % Plt Count 308 (130-400) K/uL MPV 9.6 (7.4-10.4) fL Immature Gran % (Auto) 0.4 % Neut % (Auto) 66.7 % Lymph % (Auto) 22.9 % [place] % (Auto) 8.0 % Eos % (Auto) 1.8 % Baso % (Auto) 0.2 % Immature Gran # (Auto) 0.04 H (0.00-0.02) K/uL Neut # (Auto) 7.31 H (1.4-6.5) K/uL Lymph # (Auto) 2.50 (1.2-3.4) K/uL Stanly # (Auto) 0.87 H (0.11-0.59) K/uL Eos # (Auto) 0.20 (0-0.5) K/uL Baso # (Auto) 0.02 (0-0.2) K/uL Sodium 140 (136-145) mmol/L Potassium 4.1 D (3.5-5.1) mmol/L Chloride 107 (98-107) mmol/L Carbon Dioxide 27 (21-32) mmol/L Anion Gap 6.0 (3-11) BUN 3 L (7-18) mg/dl Creatinine 0.48 L (0.6-1.2) mg/dl Est Cr Clr Drug Dosing 160.1 ml/min Est GFR ( Amer) > 150.0 Est GFR (Non-Af Amer) 140.2 BUN/Creatinine Ratio 5.6 L (10-20) Glucose 80 (70-99) mg/dl Calcium 8.8 (8.5-10.1) mg/dl Vancomycin Trough 16.8 (See Comment) mcg/ml 12/08/18 Range/Units 05:57 WBC (4.8-10.8) K/uL RBC (4.2-5.4) M/uL Hgb (12.0-16.0) g/dL Hct (37-47) % MCV (80-100) fL MCH (25-34) pg MCHC (32-36) g/dL RDW Std Deviation (36.4-46.3) fL RDW Coeff of Denny (11.5-14.5) % Plt Count (130-400) K/uL MPV (7.4-10.4) fL Immature Gran % (Auto) % Neut % (Auto) % Lymph % (Auto) % Stan[place] % (Auto) % Eos % (Auto) % Baso % (Auto) % Immature Gran # (Auto) (0.00-0.02) K/uL Neut # (Auto) (1.4-6.5) K/uL Lymph # (Auto) (1.2-3.4) K/uL Stan[place] # (Auto) (0.11-0.59) K/uL Eos # (Auto) (0-0.5) K/uL Baso # (Auto) (0-0.2) K/uL Sodium (136-145) mmol/L Potassium (3.5-5.1) mmol/L Chloride (98-107) mmol/L Carbon Dioxide (21-32) mmol/L Anion Gap (3-11) BUN (7-18) mg/dl Creatinine 0.54 L (0.6-1.2) mg/dl Est Cr Clr Drug Dosing 142.3 ml/min Est GFR ( Amer) > 150.0 Est GFR (Non-Af Amer) 134.9 BUN/Creatinine Ratio (10-20) Glucose (70-99) mg/dl Calcium (8.5-10.1) mg/dl Vancomycin Trough (See Comment) mcg/ml Medications Administered Current Inpatient Medications Acetaminophen (Tylenol) 650 mg PO Q4H PRN PRN Reason: pain/fever Stop: 01/05/19 23:37 Hydrocodone Bitart/Acetaminophen ([place] 5/325) 1 tab PO 3XDQ4 PRN PRN Reason: Pain Stop: 12/22/18 11:20 Hydrocodone Bitart/Acetaminophen ([place] 5/325) 2 tab PO 3XDQ4 PRN PRN Reason: Pain Stop: 12/22/18 11:20 Al Hydrox/Mg Hydrox/Simethicone (Maalox) 30 ml PO Q6H PRN PRN Reason: Dyspepsia Stop: 01/05/19 23:37 Enoxaparin Sodium (Lovenox) 40 mg SQ QAM [facility] Stop: 01/08/19 08:59 Clindamycin Phosphate 600 mg/ (Dextrose) 54 mls @ 100 mls/hr IV Q8H [facility] Stop: 12/17/18 00:59 Last Infusion: 12/08/18 10:00 Dose: Infused Documented by: Vancomycin HCl 1,000 mg/ (Sodium Chloride) 270 mls @ 125 mls/hr IV Q8H [facility] Stop: 12/17/18 11:59 Last Infusion: 12/08/18 15:01 Dose: Infused Documented by: Promethazine HCl 12.5 mg/ (Sodium Chloride) 50.5 mls @ 204 mls/hr IV Q6H PRN PRN Reason: Nausea And Vomiting Stop: 01/07/19 11:20 Promethazine HCl 25 mg/ Sodium (Chloride) 51 mls @ 204 mls/hr IV Q6H PRN PRN Reason: Nausea And Vomiting Stop: 01/07/19 11:20 Ibuprofen (Motrin) 600 mg PO Q6H PRN PRN Reason: Pain Stop: 01/07/19 11:20 Magnesium Hydroxide (Milk Of Magnesia) 30 ml PO Q6H PRN PRN Reason: Constipation Stop: 01/05/19 23:37 Miscellaneous Information (Consult) 1 ea N/A UD PRN PRN Reason: Consult Stop: 01/05/19 23:37 Morphine Sulfate (Morphine Sulfate) 2 mg IV 4XDQ3H PRN PRN Reason: Pain Stop: 12/22/18 11:20 Morphine Sulfate (Morphine Sulfate) 4 mg IV 3XQ2H PRN PRN Reason: Pain Stop: 12/22/18 11:20 Ondansetron HCl (Zofran) 4 mg IV 4XDQ4H PRN PRN Reason: Nausea Stop: 01/07/19 11:20 Polyethylene Glycol (Miralax Powder Packet) 17 gm PO DAILY PRN PRN Reason: Constipation Stop: 01/05/19 23:37 Zolpidem Tartrate (Ambien) 5 mg PO HS PRN PRN Reason: Sleep Stop: 01/05/19 23:37 Resident Activity Tracking Resident Involvement: Resident Care Provided Care Provided: Adult Hospital Medicine
[2018-12-08] MEDS ORDERED: ACETAMINOPHEN 1,000 MG/100 ML VIAL IV ONE ×2 (08:42→09:47)
--- NOTE | 2018-12-08 08:42 | Operative Report ---
Post Operative Report Pre & Post Diagnosis Operation Date: 12/08/18 07:00 perirectal abscess <No data on this case meets the specified criteria> Procedure Operation Date: 12/08/18 07:00 <No data on this case meets the specified criteria> incision/ drainage perirectal abscess Surgeon Dmitriy Liriano MD, FACS [employer] nurses Estimated Blood Loss 5 Findings Consistent with Post-Op Diagnosis Specimens culture Description of Procedure see dictation I attest to the content of the Intraoperative Record and any orders documented therein. Any exceptions are noted below.
[2018-12-08 08:58] LABS: Basophils # (auto) 0.02 K/uL (0-0.2); Basophils % (auto) 0.2 %; Eosinophils % (auto) 1.8 %; Hemoglobin 12.6 g/dL (12.0-16.0); Immature Granulocytes # (auto) 0.04 K/uL (0.00-0.02); Immature Granulocytes % (auto) 0.4 %; Lymphocytes % (auto) 22.9 %; Mean Corpuscular Hgb Conc 34.1 g/dL (32-36); Mean Corpuscular Volume 89.4 fL (80-100); Mean Platelet Volume 9.6 fL (7.4-10.4); Monocytes # (auto) 0.87 K/uL (0.11-0.59); Neutrophils # (auto) 7.31 K/uL (1.4-6.5); Neutrophils % (auto) 66.7 %; Platelet Count 308 K/uL (130-400); RDW Coefficient of Variation 12.6 % (11.5-14.5); RDW Standard Deviation 40.4 fL (36.4-46.3); Red Blood Count 4.14 M/uL (4.2-5.4); White Blood Count 10.94 K/uL (4.8-10.8)
[2018-12-08] MEDS ORDERED: MIDAZOLAM HCL 1 MG/ML 2ML VIAL ONE (09:05)
[2018-12-08] MEDS ORDERED: fentaNYL citrate 100 MCG/2 ML VIAL ONE (09:05)
[2018-12-08 09:07] LABS: BUN Creatinine Ratio 5.6 (10-20); Blood Urea Nitrogen 3 mg/dl (7-18); Calcium 8.8 mg/dl (8.5-10.1); Carbon Dioxide 27 mmol/L (21-32); Chloride 107 mmol/L (98-107); Creatinine Clr Calc Pharmacy 160.1 ml/min; Est GFR (African American) > 150.0; Est GFR (Non-African American) 140.2; Glucose 80 mg/dl (70-99); Potassium 4.1 mmol/L (3.5-5.1); Sodium 140 mmol/L (136-145)
--- NOTE | 2018-12-08 09:13 | Anesthesiology Consultation ---
Date of Service December 08, 2018 Assessment & Plan Chart Review Chart Review: Acceptable Risk for Surgery and Patient NOT seen in Pre Admission Testing Consults Requested none ASA ASA2 Proposed Anesthesia Anesthesia Type: General Risk / Benefits Reviewed With: PT / POA / Parent / Guardian, Accepts Plan and Informed Consent Obtained History Surgery Operation Date: 12/08/18 07:00 Proposed Procedures p Right Thigh Abcess Incision, Drainage and Culture - Dmitriy Liriano MD, FACS Height/Weight Height: 5 ft 4 in Weight: 64.2 kg Allergies Allergy/AdvReac Type Severity Reaction Status Date / Time No Known Allergies Allergy Unverified 12/07/18 01:00 Medications Active Medications Generic Name Dose Route Start Last Admin Trade Name Freq PRN Reason Stop Dose Admin Clindamycin Phosphate 600 mg/ 54 mls @ 100 mls/hr 12/07/18 01:00 12/08/18 02:47 Dextrose IV 12/17/18 00:59 Infused Q8H JACKI Infusion Vancomycin HCl 1,000 mg/ 270 mls @ 125 mls/hr 12/07/18 12:00 12/08/18 05:01 Sodium Chloride IV 12/17/18 11:59 125 mls/hr Q8H JACKI Administration Ibuprofen 400 mg 12/06/18 23:38 12/07/18 02:37 Advil PO 01/05/19 23:37 400 mg QID PRN Administration Moderate Pain NPO Date Last Intake of Fluids: 12/08/18 Time Last Intake of Fluids: 06:00 Last Intake of Fluids Comment: sip of water Date Last Intake of Solids: 12/07/18 Time Last Intake of Solids: 18:00 Past Medical History Medical History Psoriasis Exercise / Class Metabolic Activity 1 > 8 Run/Swim/Ski/Tennis Past Surgical History Surgical History No pertinent past surgical history Past Anesthesia History No Hx of Anesthesia Complications and No Family Hx of Anesthesia Complications History of PONV No Hx of PONV, No Family Hx of PONV and No Hx of Motion Sickness Social History Smoking Status: Never smoker Hx Alcohol Use: Yes Alcohol type: beer, wine and hard liquor alcohol intake frequency: a few times a week Hx Substance Use: No Physical Exam Vital Signs Last Vital Signs Temp 37.8 C H 12/08/18 08:57 Pulse 88 12/08/18 08:57 Resp 20 12/08/18 08:57 BP 131/78 12/08/18 08:57 Pulse Ox 96 12/08/18 08:57 Constitutional not obese ENMT Mouth: no dentition abnormality Thyromental Distance: > or= 3.5 Finger Breadths Mallampati Class: II Neck normal visual inspection and trachea midline; neck extension not limited Respiratory normal respiratory effort Auscultation: lungs clear to auscultation bilaterally Cardiovascular Rate/Rhythm: regular rate and regular rhythm Heart Sounds: no murmur Musculoskeletal Spine: normal cervical ROM Neurologic moves all extremities Motor/Sensory: no sensory deficit Psychiatric Orientation: alert and oriented x 3 Testing Laboratory Results 12/08/18 06:02 12/08/18 06:02 Urine Color Dark Yellow 12/06/18 19:29 Urine Appearance Clear (Clear) 12/06/18 19:29 Urine pH 6.5 (4.5-7.5) 12/06/18 19:29 Ur Specific Balm 1.021 (1.000-1.030) 12/06/18 19:29 Urine Protein Trace (Negative) H 12/06/18 19:29 Urine Glucose (UA) Negative (Negative) 12/06/18 19:29 Urine Ketones Trace (Negative) H 12/06/18 19:29 Urine Nitrite Negative (Negative) 12/06/18 19:29 Ur Leukocyte Esterase Negative (Negative) 12/06/18 19:29 Urine WBC (Auto) 5-10 /hpf (0-5) H 12/06/18 19:29 Urine RBC (Auto) 0-4 /hpf (0-4) 12/06/18 19:29 U Hyaline Cast (Auto) 10-30 /lpf (0-5) H 12/06/18 19:29 U Epithel Cells (Auto) >30 /lpf (0-5) H 12/06/18 19:29 Urine Bacteria (Auto) 1+ (Negative) H 12/06/18 19:29 12/06/18 19:29 Urine Culture - Preliminary Urine,Clean Catch No growth - Less than 1,000 colonies/mL, Final report to follow. 12/06/18 19:29 POC Ur Test NEG
[2018-12-08] MEDS ORDERED: NALOXONE HCL 0.4 MG/1 ML VIAL/CARP IV PRN (09:17)
[2018-12-08] MEDS ORDERED: fentaNYL citrate 100 MCG/2 ML VIAL IV PRN (09:17)
[2018-12-08] MEDS ORDERED: ONDANSETRON INJ 2 MG/ML 2 ML VIAL IV PRN ×2 (09:17→11:21)
[2018-12-08] MEDS ORDERED: ATROPINE SULFATE 0.1 MG/ML 10ML SYR IV PRN (09:17)
[2018-12-08] MEDS ORDERED: PROMETHAZINE HCL 12.5 MG in SODIUM CHLORIDE 0.9% 50 ML IV PRN ×2 (09:17→11:21)
[2018-12-08] MEDS ORDERED: ePHEDrine sulfate 50 MG/ML AMP IV PRN (09:17)
[2018-12-08] MEDS ORDERED: FLUMAZENIL 0.1 MG/1 ML 10 ML VIAL IV PRN (09:17)
[2018-12-08] MEDS ORDERED: BUPIVACAINE 0.5 % 5 MG/1 ML MPF 30ML VIAL ONE (09:22)
--- NOTE | 2018-12-08 09:47 | Operative Report ---
Post Operative Report Pre & Post Diagnosis Operation Date: 12/08/18 07:00 Pre-Op Diagnosis: CELLULITIS,ABSCESS Right thigh Post-Op Diagnosis: CELLULITIS,ABSCESS Right thigh Procedure Operation Date: 12/08/18 07:00 Actual Procedures p Right Thigh Abcess Incision, Drainage and Culture - Dmitriy Liriano MD, FACS Surgeon Dmitriy Liriano MD, FACS Heating Technician nurses Estimated Blood Loss 5 Findings Consistent with Post-Op Diagnosis Specimens culture Description of Procedure see dictation pt had 4x2.5 cm deep abscess I attest to the content of the Intraoperative Record and any orders documented therein. Any exceptions are noted below.
[2018-12-08] MEDS ORDERED: ONDANSETRON INJ 2 MG/ML 2 ML VIAL ONE (09:49)
[2018-12-08] MEDS ORDERED: PROPOFOL IV EMULSION 10 MG/ML 20 ML VIAL IV ONE (09:49)
[2018-12-08] MEDS ORDERED: LIDOCAINE HCL 2% 2 ML VIAL/AMP(20MG/ML) INFIL ONE (09:49)
[2018-12-08] MEDS ORDERED: DEXAMETHASONE SOD INJ 4 MG/ML VIAL ONE (09:49)
--- NOTE | 2018-12-08 10:52 | Operative Report ---
DATE OF OPERATION: 12/08/2018 NAME OF OPERATION: Incision, drainage and culture of right thigh abscess. PREOPERATIVE DIAGNOSIS: Right thigh abscess. POSTOPERATIVE DIAGNOSIS: Right thigh abscess. STAFF SURGEON: Dmitriy Liriano MD ANESTHESIA: General. DESCRIPTION OF PROCEDURE: The patient was brought in the operating room and placed on the operating table in supine position. Her right thigh was prepped and draped in usual fashion. Using a needle, I was able to aspirate purulent fluid approximately 2.5 cm deep. It was sent for culture. I then made an incision using 0.5% plain Marcaine to anesthetize skin and subcutaneous tissue down into this area and encountered a 4 x 2.5 cm abscess with purulent fluid. This was drained and then irrigated and then a quarter inch Nelsy drain placed into the drain, secured to the skin using 4-0 nylon suture. The medial part of the wound was closed using 5-0 Monocryl subcuticular and Steri-Strips. The lateral part left open. Dressing applied and the patient transferred to the recovery room in stable condition. I attest to the content of the Intraoperative Record and any orders documented therein. Any exception s are noted below.
[2018-12-08] MEDS ORDERED: PROMETHAZINE HCL 25 MG in SODIUM CHLORIDE 0.9% 50 ML IV PRN (11:21)
[2018-12-08] MEDS ORDERED: ACETAMINOPHEN 325 MG TAB PO PRN (11:21)
[2018-12-08] MEDS ORDERED: MoRPHine SULFATE 4 MG/ML 1 ML CARP\\VIAL IV PRN (11:21)
[2018-12-08] MEDS ORDERED: MoRPHine SULFATE 2 MG/ML CARP IV PRN (11:21)
[2018-12-08] MEDS ORDERED: SODIUM CHLORIDE 0.9% 1000ML 1,000 ML IV SCH (11:21)
[2018-12-08] MEDS ORDERED: IBUPROFEN 600 MG TAB PO PRN (11:21)
[2018-12-08] MEDS ORDERED: HYDROCODONE/ACETAMOPHEN 5/325MG TAB PO PRN ×2 (11:21)
[2018-12-08] MEDS ORDERED: VANCOMYCIN TROUGH ONE (11:30)
--- NOTE | 2018-12-08 13:03 | Pharmacy Report ---
Pharmacy Abx Dose Short Note - Date of Service December 08, 2018 - Assessment & Plan Assessment 23 year old F receiving vancomycin and clinda for treatment of possible cellulitis/developing abscess Day # 2 of antimicrobial therapy. Plan Vancomycin * Trough level of 16.8 mcg/mL is therapeutic * Continue dose of 1000 mg IV every 8 hours * Goal trough level : 15 to 20 mcg/mL * Repeat Trough level ordered for: 12/10/18 @1130. Will adjust if necessary as clinically indicated Pharmacy will continue to follow and will adjust dose/frequency as necessary. Thank you.
--- NOTE | 2018-12-08 14:37 | Infectious Disease Progress Nt ---
Date of Service December 08, 2018 Assessment & Plan (1) Cellulitis of thigh: continue abx pending final cultures, hopefully can transition to po when final available for review. continue local wound care. will follow. Subjective pt seen in followup,doing well. went to OR this am, I&D large abscess done, discussed with surgery. tolerated well. no pain post op, dressing intact. OR culture pending but gram stain with many gpc. remains on clinda and vanco. tolerating well. no n/v/d/abd pain, no f/c. no cp, sob, cp. no pain in rle. wbc improved to 10 today. Review of Systems Review of Systems: All systems reviewed & are unremarkable except as noted in HPI & below Physical Exam Constitutional: WD/WN, vitals as above Eyes: PERRL, conjunctivae normal, anicteric sclerae ENMT: external ear and nose normal, oropharynx normal Neck: normal visual inspection Respiratory: normal respiratory effort, lungs clear to auscultation Cardiovascular: RRR, no murmur, no edema Gastrointestinal (Abdomen): normal bowel sounds, soft, nontender, no hepatosplenomegaly Musculoskeletal: no cyanosis or clubbing, extremities motor strength 5/5 Skin: no rashes, warm and dry OR dressing c/d/i, no surrounding warmth, tenderness, erythema. edema resolved. Psychiatric: A+Ox3, euthymic affect Results & Data Vital Signs (Past 12 Hours) Vital Signs Temp Pulse Pulse Resp BP BP Pulse Ox 12/08/18 13:43 36.5 C 68 16 106/65 95 12/08/18 12:46 68 16 101/58 L 98 12/08/18 11:47 60 16 107/68 96 12/08/18 11:07 36.5 C 63 16 102/66 96 12/08/18 10:30 36.4 C L 70 20 106/70 99 12/08/18 10:20 97 H 21 105/49 L 99 12/08/18 10:10 57 L 17 99/66 L 100 12/08/18 10:00 63 14 92/58 L 100 12/08/18 09:52 36.3 C L 68 20 92/56 L 99 12/08/18 08:57 37.8 C H 88 20 131/78 96 12/08/18 07:35 36.6 C 85 16 108/70 97 Laboratory Results Microbiology 12/08/18 09:32 Thigh,Right Gram Stain - Final 12/06/18 19:29 Urine,Clean Catch Urine Culture - Final More than three types of organisms present, all moderate counts mixed probable skin madhav. No further identifications or sensitivities to follow.
[2018-12-09] MEDS: CLINDAMYCIN 600 MG in DEXTROSE 5% 50 ML IV SCH ×2 (00:59→08:31)
[2018-12-09] MEDS: VANCOMYCIN HCL 1,000 MG in SODIUM CHLORIDE 0.9% 250 ML IV SCH ×2 (03:34→11:52)
[2018-12-09 06:37] LABS: Basophils # (auto) 0.02 K/uL (0-0.2); Basophils % (auto) 0.1 %; Eosinophils # (auto) 0.03 K/uL (0-0.5); Eosinophils % (auto) 0.2 %; Hematocrit (blood only) 36.1 % (37-47); Hemoglobin 12.7 g/dL (12.0-16.0); Immature Granulocytes # (auto) 0.05 K/uL (0.00-0.02); Immature Granulocytes % (auto) 0.4 %; Lymphocytes # (auto) 3.22 K/uL (1.2-3.4); Lymphocytes % (auto) 22.6 %; Mean Corpuscular Hgb Conc 35.2 g/dL (32-36); Mean Corpuscular Volume 87.4 fL (80-100); Mean Platelet Volume 9.3 fL (7.4-10.4); Monocytes # (auto) 0.98 K/uL (0.11-0.59); Monocytes % (auto) 6.9 %; Neutrophils # (auto) 9.96 K/uL (1.4-6.5); Neutrophils % (auto) 69.8 %; Platelet Count 346 K/uL (130-400); RDW Coefficient of Variation 12.5 % (11.5-14.5); Red Blood Count 4.13 M/uL (4.2-5.4); White Blood Count 14.26 K/uL (4.8-10.8)
[2018-12-09 07:05] LABS: INR 1.1 (0.9-1.1); Partial Thromboplastin Time 27.6 Seconds (21.0-31.0); Prothrombin Time 11.4 Seconds (9.0-12.0)
--- NOTE | 2018-12-09 07:46 | Progress Note ---
Date of Service December 09, 2018 Assessment & Plan (1) Abscess: s/p Rt thigh abscess/ drainage- cont IV atbx until organism isolated- leave drain at least one week- If goes home will need follow up If doesn't improve over 2-3 weeks , will need to be opened and wound vac placed- discussed with pt- can followup in office when comes back from home Subjective feeling better- less pain drainage expected Physical Exam Physical Exam: less induration kurt drain in place Results & Data Vital Signs (Past 12 Hours) Vital Signs Temp Pulse Resp BP Pulse Ox 12/09/18 07:37 36.6 C 60 16 107/68 97 12/09/18 03:43 36.6 C 64 16 108/66 98 12/08/18 23:36 37.3 C 64 16 104/65 96 12/08/18 20:14 36.7 C 69 16 113/72 92
--- NOTE | 2018-12-09 08:15 | Family Medicine Progress Note ---
Date of Service December 09, 2018 Assessment & Plan (1) Lymphadenopathy, inguinal: 23 y/o F PMHx psoriasis who takes Cosentyx. She developed an area of inflammation on her R thigh over the past 2 weeks which acutely worsened over the past 1 to 2 days becoming increasingly large and slightly painful. She denies fevers or rigors and did not suffer trauma to the area. Initial labs are notable for leukocytosis and mild hypokalemia. No recent cuts or trauma to the leg #) POD day 1 from I&D under general anesthesia of right mid thigh lymphadenopathy On presentation leg had visible swelling in the upper right thigh on palpation was thought to be a lymph node with corresponding erythema. Erythematous region was marked with a marker on admission and ultrasound was obtained. Ultrasound was negative for abscess but demonstrates some subcutaneous fluid and risk of abscess development. She was placed on vancomycin and clindamycin and admitted for inpatient monitoring overnight. This morning her cellulitis is resolved no more erythematous in the region and swelling is within the previously marked site. Patient went for I&D today under general anesthesia, tolerated the procedure well, meeting all postoperative milestones. -General surgery was consulted following the recommendations. -Continue IV antibiotics pending culture results. -Discharge with pigtail catheter removed in 1 week either here or at home in [place] -No symptom resolution in 2 to 3 weeks we will have to consider repeat I&D with placement of wound VAC -Infectious disease consulted following recommendations -Transition to p.o. pending resolution of cultures obtained during I&D -Daily CBC to trend infection -Routine postop care -Pain control per general surgery with hydrocodone/acetaminophen, will DC prn acetaminophen to decrease risk of acetaminophen toxicity -Leukocytosis resolving 10.94 today from 13.86 -Culture resulted showing group A beta strep, no sensitivities to follow -dc clinda/vanco -will complete 10 course of abx coverage, today is day 3/10 #)Hx or recent UTI Patient reports recent history of urinary tract symptoms last weekend, she treated herself with [id number] medication, leading to resolution of symptoms. UA from yesterday evening was suspicious for urinary tract infection. 5-10 WBCs, urine bacteria 1+, hyaline cast present, epithelial cells as well. -Cultures negative for UTI #) Hypokalemia -resolved -received 2 doses 20 M EQ KCl in the emergency room and 1 dose 12/07 -Follow daily BMP, replete electrolytes as indicated #) Psoriasis -Hold Cosentyx until infection is resolved -Her next dose was supposed to be tomorrow will delay and resume next week #) Discharge Planning -She will need her drain removed in 1 week, she can the either stay here for this or we should contact her primary care provider to arrange for this at home -Patient will need follow-up when she returns -will with patient discharge plans and plans to go home to [place] FENa: Regular diet Code Status: Full code DVT PPX: Lovenox Dispo: MedSurg Subjective Patient sitting up in bed this morning in no acute distress. Reported doing well overnight pain was well controlled and did not require pain medication. Patient reports sleeping, tolerating her diet, voiding, and stooling appropriately. Patient met all postoperative milestones. Patient reports significantly cannot subjective improvement in pain and states that she barely even notices that the bandages there. no acute concerns at present, all questions answered. Patient denies pain, fever, chills, shortness of breath, chest pain, chest pressure, headache, malaise, or other signs or symptoms of acute process other than described above Physical Exam Physical Exam: General: Young female in no acute distress Eyes: EOMI/PERRLA Neck: Trachea midline normal to visual inspection Chest: CTABL Cardiac: Regular rate and rhythm, normal S1 normal S2, no murmurs rubs or gallops GI: Normal bowel sounds, nontender, nondistended MSK: Moves all extrema Skin: Surgical site clean dry and intact, negative erythema, negative for pain Neuro: AAO x4 Psych: Calm cooperative logical thought process Results & Data Vital Signs (Past 12 Hours) Vital Signs Temp Pulse Resp BP Pulse Ox 12/09/18 07:37 36.6 C 60 16 107/68 97 12/09/18 03:43 36.6 C 64 16 108/66 98 12/08/18 23:36 37.3 C 64 16 104/65 96 Resident Activity Tracking Resident Involvement: Resident Care Provided Care Provided: Adult Hospital Medicine
[2018-12-09] MEDS ORDERED: ENOXAPARIN INJ 40 MG/0.4 ML SYR SQ SCH (09:00)
[2018-12-09] MEDS ORDERED: AMOXICILLIN/CLAVULANATE 875 MG TAB PO SCH (12:30)
--- NOTE | 2018-12-09 14:22 | Infectious Disease Progress Nt ---
Date of Service December 09, 2018 Assessment & Plan (1) Cellulitis of thigh: agree with transition to po Augmentin, would suggest 14 days post op, continue local wound care, surgical followup post d/c. ok for d/c from ID standpoint when otherwise stable. Subjective pt seen in followup, culture from I&D growing GAS, no sensitivities to be done. vanco and clinda d/c by primary, now on Augmentin, has not yet had first dose. afebrile. less pain. states she is to be d/c later today. no pain in leg. dressing changed, denies abd pain, no n/v/d. From [place] but will be staying local for next week to complete post op visit. all remaining ros reviewed and are negative Review of Systems Review of Systems: All systems reviewed & are unremarkable except as noted in HPI & below Physical Exam Constitutional: WD/WN, vitals as above Eyes: PERRL, conjunctivae normal, anicteric sclerae ENMT: external ear and nose normal, oropharynx normal Neck: normal visual inspection Respiratory: normal respiratory effort, lungs clear to auscultation Cardiovascular: RRR, no murmur, no edema Gastrointestinal (Abdomen): normal bowel sounds, soft, nontender, no hepatosplenomegaly Musculoskeletal: no cyanosis or clubbing, extremities motor strength 5/5 Skin: no rashes, warm and dry dressing c/d/i, no surrounding warmth, erythema, tenderness, induration, significantly improved Psychiatric: A+Ox3, euthymic affect Results & Data Vital Signs (Past 12 Hours) Vital Signs Temp Pulse Resp BP Pulse Ox 12/09/18 07:37 36.6 C 60 16 107/68 97 12/09/18 03:43 36.6 C 64 16 108/66 98 Laboratory Results Microbiology 12/08/18 09:32 Thigh,Right Gram Stain - Final 12/08/18 09:32 Thigh,Right Aerobic and Anaerobic Culture - Preliminary Group A Beta Strep 12/06/18 19:29 Urine,Clean Catch Urine Culture - Final More than three types of organisms present, all moderate counts mixed probable skin madhav. No further identifications or sensitivities to follow.
--- NOTE | 2018-12-09 18:41 | Discharge Summary ---
Date of Service December 09, 2018 Admission HPI Per Admitting Provider 23 y/o F Hx psoriasis who takes Cosentyx. She developed an area of inflammation on her R thigh jackie the past 1-2 days which has become firm and painful. She denies fevers or rigors and did not suffer trauma to the area. Initial labs are notable for leukocytosis and mild hypokalemia. PMH: Limited to psoriasis. She was on Humira for one year and switched to Cosentyx as the Humira injection was painful. Surgical: Tonsillectomy age 17 Social: [employer] student. Denies smoking. Drink a little. Family: Parents alive and well. Admission Exam Per Admitting Provider General: AAO x 3, no distress ENT: No erythema or exudates, no thrush Eyes: TITO, EOMI Head and neck: Normocephalic, atraumatic, No JVD, neck is supple. Chest/heart: Nontender, S1,2, RRR, no murmurs, no gallops Lungs: CTAB, no wheezing or crackles Abdomen: Nontender, nondistended, BS+ Neuro: AAO x 3, speech is clear, no unilateral weakness or loss of sensation, coordination intact Musculoskeletal: No joint inflammation, muscle tenderness, FROM Skin: There is a large frim/erythematous area on the pt's R thigh which examines as an abscess. Extremities: No clubbing, cyanosis, edema Principal Diagnosis Right thigh cellulitis with abscess formation requiring incision and drainage Discharge Exam General: Young female in no acute distress Eyes: EOMI/PERRLA Neck: Trachea midline normal to visual inspection Chest: CTABL Cardiac: Regular rate and rhythm, normal S1 normal S2, no murmurs rubs or gallops GI: Normal bowel sounds, nontender, nondistended MSK: Moves all extrema Skin: Surgical site clean dry and intact, negative erythema, negative for pain Neuro: AAO x4 Psych: Calm cooperative logical thought process Discharge Data Allergies Allergy/AdvReac Type Severity Reaction Status Date / Time No Known Allergies Allergy Unverified 12/07/18 01:00 Consultations 12/06/18 22:58 ED Decision to Admit Stat 12/06/18 23:38 Consult General Surgery Routine 12/07/18 07:21 Consult Infectious Diseases Routine Procedures Performed Operation Date: 12/08/18 07:00 Actual Procedures p Right Thigh Abcess Incision, Drainage and Culture - Dmitriy Liriano MD, FACS Ordered Studies 12/06/18 19:07 extremity non-vascular [facility] Stat Hospital Course (1) Lymphadenopathy, inguinal: 23 y/o F PMHx psoriasis who takes Cosentyx. She developed an area of inflammation on her R thigh over the past 2 weeks which acutely worsened over the past 1 to 2 days becoming increasingly large and slightly painful. She denies fevers or rigors and did not suffer trauma to the area. Initial labs are notable for leukocytosis and mild hypokalemia. No recent cuts or trauma to the leg #) POD day 1 from I&D under general anesthesia of right mid thigh lymphadenopathy On presentation leg had visible swelling in the upper right thigh on palpation was thought to be a lymph node with corresponding erythema. Erythematous region was marked with a marker on admission and ultrasound was obtained. Ultrasound was negative for abscess but demonstrates some subcutaneous fluid and risk of abscess development. She was placed on vancomycin and clindamycin and admitted for inpatient monitoring overnight. This morning her cellulitis is resolved no more erythematous in the region and swelling is within the previously marked site. Patient went for I&D 12/07 under general anesthesia, tolerated the procedure well, meeting all postoperative milestones. Cultures resulted on 12/09 showing beta-hemolytic group A strep, IV antibiotics were discharged, patient was started on p.o. Augmentin. She received her first dose of Augmentin while hospitalized and will complete a 13-day course as an outpatient for a total of 14 days of antibiotics from the operative date. Patient will be discharged this evening on 12/09/18 to follow-up with Dr. Puentes in the clinic on Friday at 12:[address] Liriano will follow-up next week to remove the drain. #)Hx or recent UTI Patient reports recent history of urinary tract symptoms last weekend, she treated herself with [id number] medication, leading to resolution of symptoms. UA from yesterday evening was suspicious for urinary tract infection. 5-10 WBCs, urine bacteria 1+, hyaline cast present, epithelial cells as well. Cultures resulted and were negative you for UTI. #) Hypokalemia Admission labs showed hypokalemia 3 received 2 doses of 20 mEq in the ED, and a another dose the following morning on the general floor. #) Psoriasis Patient has a history of psoriasis treated with Cosentyx. Given her recent infection will hold off on Cosentyx this month and resume at the beginning of next month FENa: Regular diet Code Status: Full code DVT PPX: Lovenox Dispo: MedSurg Total Time Total Time Spent Total Time Spent (In Minutes): <30 Discharge Plan Discharge Items Patient Disposition: Home - Self-Care Reason For Visit: CELLULITIS,ABSCESS Discharge Diagnosis: Cellulitis with abscess formation requiring incision and drainage Condition: Good Discharge Goals: Decrease discomfort and Therapeutic intervention Activity: Resume your previous activity Non-emergency contact: Primary Care Provider and Surgeon Call non-emergency contact if: you have any medication questions, your pain is not controlled and your temperature is above 100.5 Follow-up/Referrals: Jose Puentes MD [Resident] - 12/11/18 12:50 pm (Please follow-up with Dr. Puentes on December 11 at 12:50 PM. His office is located at [address] [place] [address] This is the building on the left side of the road as you were driving up to the hospital. Walk in the doors and make a right.) PCP,NO [Primary Care Provider] - Diet: Regular Addtl Provider Instructions: Care instructions: You were admitted to [facility] for treatment of cellulitis with abscess formation requiring incision and drainage (skin and soft tissue infection). A discharge summary will be sent to your primary care physician to ensure continuity of care. Please bring this discharge summary with you to your next office appointment so that your provider can review it at that time. Infection Please continue to take Augmentin as prescribed for 13 more days 2 times per day once in the morning and once in the evening. A prescription has been called into your pharmacy please pick that tomorrow. Wound Care Try to keep the surgical site clean and dry, you may shower but avoid getting this area wet. The drain will be removed by general surgery in approximately 1 week's time. They will contact you to schedule an appointment. Follow-up appointments: - Keep all your follow-up appointments as already scheduled. If you cannot make an appointment, notify your provider. - Please call to request a follow-up appointment with your primary care physician within one week of discharge. Please let us know if you are unable to obtain an appointment Medications: - Your medication list has been reviewed and reconciled upon discharge to ensure accuracy and continuity of care. - You are provided with a list of all your current medications at this time. Please review this list closely and make note of any changes. - Please take all of your medications exactly as prescribed. - Tell your primary care provider if you cannot afford your medications. - Call your primary care provider if you are having any side effects or any other problems. - Call your primary care provider before taking any over the counter medications or supplements, including herbals and vitamins, because some of these may interact with your current medications and/or make your symptoms worse. Symptoms: Please call your primary care provider for symptoms including, but not limited to: fevers (temperatures greater than 100.4), chills, intractable nausea or vomiting, diarrhea, rash, shortness of breath, bleeding, pain, or if you experience any worsening of the symptoms that brought you to the hospital. For EMERGENCY and VERY SERIOUS health-related issues, such as chest pain, shortness of breath, or sudden onset of the symptoms that brought you to the hospital, you may need to call 911 or go directly to the Emergency Room It has been our privilege to take care of you during your hospital stay. And Above All Else Fell Better! Best Wishes, Jose Puentes MD PGY1 Resident, Family & Community Medicine [facility] Residency at [facility] [address], [address] : [place] [address] Prescriptions: New amoxicillin-pot clavulanate 875-125 mg Tablet 1 tab PO BID 13 Days Qty: 26 RF: 0 Stand-Alone Forms: My [facility] Discharge Orders: Discharge Order (Routine); Ordered 12/09/18 Ordered By: Jose Puentes Admission Data Admit Date/Time: 12/07/18 13:27 Attending Provider: Phi Garvin Admit Provider: Donnie La Primary Care Provider: PCP,NO Other Providers: Donnie La ; Aron Pritchard ; Rene Rhodes Service: Surgical Services Other Interventions: Discharge Summary Assessment (RN) Last Done: 12/09/18 17:01 DC Date/Time DO NOT enter until pt leaves facility: 12/09/18 18:51 Supervising Physician Co-Signing Physician Notes I personally examined the patient and verified all cerrato points of history and exam, discussed case, and agree with decision making with Dr Puentes. feeling good, pain controlled no new complaints. vitals noted nad breathing unlabored no pallor or icterus. cellulitis, developed abscessnow status post drainage. cultures showing group A strep. stable for home on augmentin, outpt f/u for healing and drain removal. Resident Activity Tracking Resident Involvement: Resident Care Provided Care Provided: Adult Hospital Medicine
[2018-12-10] MEDS ORDERED: VANCOMYCIN TROUGH ONE (11:30)
== END 2018-12-09 18:51 | disposition home or self-care (01) | DRG 581 ==
LOC: 3W 18:50 → ED 18:50 → SUATTDRO 22:36 → 3W 23:11